=== PATIENT | female | born 1985 | race Caucasian/White ===

== ENCOUNTER 2025-01-16 01:17 | Emergency (ER) | payer OTHER, SELFPAY ==
[2025-01-16 01:26] VITALS: BP 154/74
[2025-01-16 03:12] LABS: Hematocrit 28.7 % (37.0-47.0); Hemoglobin 9.6 g/dL (12.0-16.0); Mean Corp Hgb Conc. 33.4 g/dL (33.0-37.0); Mean Corpuscular Volume 85.7 fL (81.0-99.0); Nucleated Red Blood Cells % 0 %; Platelet Count 300 10^3/uL (130-400); Red Cell Dist. Width 12.3 % (11.5-14.5)
--- NOTE | 2025-01-16 03:27 | ED.GENMED ---
History of Present Illness
General
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
Source: patient
Exam Limitations: none
Time Seen by Provider: 01/16/25 03:13
Nursing documentation reviewed up to this point in time: agreed with
History of Present Illness
History of Present Illness:
The patient is a 39-year-old female who underwent a medical three weeks ago. She reports taking the first medication in [place] or [place], followed by the second round of pills the next day. Initially, she experienced several days of
bleeding, which then tapered off. However, in the past two days, she has experienced a significant increase in bleeding, more than at the beginning of the process, accompanied by cramping. She describes the cramping as shooting pain across the
abdomen with tenderness. The bleeding worsened today and was alarming enough for her to seek medical attention. Prior to arriving, she was soaking a pad approximately every 15 minutes while standing. Since arriving at the medical facility, the
bleeding has diminished somewhat but continues. This is the patients first . She reports no history of retained products or similar issues. She states 3 weeks ago she did pass what appeared to be a complete gestational sac. She was 6 weeks
. She denies currently using any medications but mentions being particularly busy recently due to personal matters involving her mother. She is currently residing locally, helping to care for her mother who has undergone several surgical
procedures, has a trach, feeding tube, about to initiate cancer treatment. She admits to poor sleep over the past week and significant stress as she has been helping to care for her mother. She admits to feeling somewhat fatigued but no
lightheadedness, no dizziness, no nausea nor vomiting, no chest pain or palpitations. She has not had a fever. No dysuria and urgency and or hematuria.
Past History
Past History
ED Past Medical History: None and Other (6-week gestation medical December 2024)
ED Past Surgical History: Other (Precancerous skin lesion removed from left lateral knee)
Social History
Tobacco: Non-smoker
Personal: Single
Living: with family
Employment: Employed
Family History
Family History: Cancer (Mother)
Phy Exam
Physical Exam
Physical Exam:
General: 39-year-old female appears her stated age, awake and alert, pleasant, appears in no acute distress. Boyfriend is accompanying.
Skin: Warm, dry. Normal color.
Head: Normocephalic, atraumatic.
Neck: Supple, trachea midline.
Eye, Ears, Nose, Mouth, and Throat: Oral mucosa moist.
Cardiovascular: Normal peripheral perfusion, No edema.
Respiratory: Respirations are non-labored.
Gastrointestinal : Abdomen nondistended, nontender. No palpable masses.
Back: Normal range of motion, Normal alignment.
Musculoskeletal: Normal ROM, normal strength.
Neurological: Alert and oriented to person, place, time, and situation, No focal neurological deficit observed.
Psychiatric: Cooperative, appropriate mood & affect.
Course
Orders/Labs/Results
Orders:
Orders
01/16/25 02:57
US Pelvis W Transvag Combined Urgent
Comment:
Reason For Exam: vaginal bleeding
01/16/25 02:58
Urinalysis Reflex To Culture Urgent
Date Specimen was Collected: 01/16/25
Time Specimen was Collected: 03:09
01/16/25 03:03
Type+Screen Urgent
Beta HCG Quantitative Urgent
Is this a screen?: No
Complete Blood Count/With Diff Urgent
Comprehensive Metabolic Panel Urgent
Abnormal Lab Results
01/16/25
03:03
RBC 3.35 L 10^6/uL
(4.20-5.40)
Hgb 9.6 L g/dL
(12.0-16.0)
Hct 28.7 L %
(37.0-47.0)
Glucose 106 H mg/dl
(70-99)
Total Protein 6.2 L g/dl
(6.3-8.2)
01/16/25 03:03
01/16/25 03:03
Vital Signs
Initial and Last Documented VS:
Initial Vital Signs
Temp Pulse Resp BP Pulse Ox
98 F 78 20 154/74 100
01/16/25 01:01/16/25 01:01/16/25 01:01/16/25 01:01/16/25 01:26
Last Documented Vital Signs
Temp Pulse Resp BP Pulse Ox
98 F 78 20 154/74 100
01/16/25 01:01/16/25 01:01/16/25 01:01/16/25 01:01/16/25 03:33
MDM/Problems Addressed
Differential Diagnosis Includes:
The Differential Diagnosis includes, in no particular order and is not limited to:
1. Retained products of conception
2. Infection (endometritis)
3. Coagulopathy
4. Ectopic
5. Uterine perforation
6. Subinvolution of placental site
7. Severe pelvic infection
8. Molar
9. Hormonal imbalance
10. Normal post- bleeding (albeit unusually severe)
MDM/Problems Addressed:
Heavy vaginal bleeding and abdominal pain following medical 3 weeks ago
Overall well in appearance. Abdomen is soft without appreciable tenderness.
Hemodynamically stable.
CBC reveals mild anemia with hemoglobin of 9.6. Normal white blood cell count. Normal platelet count.
Awaiting chemistries, quantitative hCG, type and Rh.
Will plan for pelvic ultrasound and continue to observe.
*Pulse Oximetry
SaO2: 100
Oxygen Mode of Delivery: Room air
Patient hypoxic: no
*Critical Care Note
Total Time (30-74mins, 75-104mins- exclusive of procedures): Not Applicable
Update Note
Update Note:
04:00
Patient requesting to leave. Stating she is tired, does not want to stay. She is concerned that no one is 'taking her seriously' I asked her what did she mean, we are waiting for her ultrasound, waiting for her bladder to be full prior to
ultrasound. I did offer IV fluids initially which she declined and instead elected to drink fluids orally.
I have again suggested IV fluids to hasten bladder filling but she is currently she now states she currently feels that her bladder is full. As such I have encouraged her to stay and lets send her over to ultrasound now, expediently.
Again she overall appears comfortable. No significant vaginal bleeding currently, she is sitting in chair accompanied by her significant other.
04:10
Despite discussion with patient, concern for potential retained products of conception, less likely ectopic patient requests to go home and declines pelvic ultrasound.
Risks discussed including worsening bleeding, symptomatic anemia, potential for infection.
She has signed out AGAINST MEDICAL ADVICE.
ED Attending Note
-
Portions of this chart may have been created with voice recognition software.� Occasional wrong word or��sound alike� substitutions may have occurred due to the inherent limitations of voice recognition software.
Discharge Plan
Departure
Patient Disposition: Against Medical Advice
Date of Disposition: 01/16/25
Time of Disposition: 04:10
Discharge Problem:
Vaginal bleeding, Left against medical advice
Referrals:
PRIVATE,PHYSICIAN [Family Provider, Internal Medicine]
Interventions
Interventions:
*Risk Screen - Suicide Last Done: 01/16/25 01:26
*General Assessment Last Done: 01/16/25 04:41
*Neglect/Abuse Screening Last Done: 01/16/25 01:26
*ED- Fall Risk Assessment Last Done: 01/16/25 04:41
*ED COVID-19 Vaccine History Last Done: 01/16/25 04:41
*Nursing Disposition Last Done: 01/16/25 04:41
ED-Female Genitourinary Assessment Last Done: 01/16/25 03:14
Discharge Date and Time
Discharge Date/Time: 01/16/25 04:42
Print Language: PASHTO
[2025-01-16 03:33] LABS: ALT (SGPT) < 10 U/L (0-35); AST (SGOT) 14 U/L (14-36); Albumin 4.1 g/dl (3.5-5.0); Alkaline Phosphatase 70 U/L (38-126); Blood Urea Nitrogen 15 mg/dl (7-17); Calcium 9.3 mg/dl (8.4-10.2); Carbon Dioxide 25 mmol/L (22-30); Chloride 107 mmol/L (98-107); Glucose 106 mg/dl (70-99); Potassium 3.9 mmol/L (3.5-5.1); Sodium 138 mmol/L (135-145); Total Protein 6.2 g/dl (6.3-8.2); eGFR > 60.00
[2025-01-16 03:50] LABS: Beta HCG Quantitative 55.46 mIU/ml
--- NOTE | 2025-01-16 04:10 | EDRN ---
Checked to see if patient was full yet for ultrasound and she doesn't understand why she is going, was explained to patient why she is needing to go, patient refusing ultrasound, Dr. Garcia back in room to go over why patient needs ultrasound, patient
reports she will go, tech back into the room to take patient to ultrasound, patient is dressed and states she wants to go. Spoke with patient, she i going to sign AMA papers and leave, she does not want to stay, patient understands the importance of
staying and having the tests done, patient still does not want to stay, explained to patient she should still have follow up. Patient states understanding and signed papers and left.
== END 2025-01-16 04:42 | disposition left against medical advice (07) ==
LOC: EMR 01:17
PROVIDERS: Physician Assistant; EMERGENCY PHYSICIAN Emergency Medicine
DX: N93.9 Abnormal uterine and vaginal bleeding, unspecified (principal); Z53.29 Procedure and treatment not carried out because of patient's decision for other reasons; Z98.890 Other specified postprocedural states
CPT/HCPCS: 99283; 80053; 84702; 85025; 86850; 86900; 86901